=== PATIENT | female | born 1950 | race Caucasian/White ===

== ENCOUNTER 2020-03-24 04:41 | Inpatient (IN) | payer OTHER ==
--- OUTSIDE RECORDS SUMMARY | 2020-03-19 08:08 | XMS ---
:1950 Author [facility] Support Name Relationship Address Phone RE Unavailable Unavailable Unavailable BASHIR GUIDO BROTHER [address] [facility] [place] [address] Re-disclosure Warning The records that you are about to access may contain information from federally- assisted alcohol or drug abuse programs. If such information is present, then the following federally mandated warning applies: This information has been disclosed to you from records protected by federal confidentiality rules (42 CFR part 2). The federal rules prohibit you from making any further disclosure of this information unless further disclosure is expressly permitted by the written consent of the person to whom it pertains or as otherwise permitted by 42 CFR part 2. A general authorization for the release of medical or other information is NOT sufficient for this purpose. The Federal rules restrict any use of the information to criminally investigate or prosecute any alcohol or drug abuse patient.The records that you are about to access may contain highly sensitive health information, the redisclosure of which is protected by Article 27-F of the [facility] Public Health law. If you continue you may haveaccess to information: Regarding HIV / AIDS; Provided by facilities licensed or operated by the [facility] Office of Mental Health; or Provided by the [facility] Office for People With Developmental Disabilities. If such information is present, then the following [facility] mandated warning applies: This information has been disclosed to you from confidential records which are protected by state law. State law prohibits you from making any further disclosure of this information without the specific written consent of the person to whom it pertains, or as otherwise permitted by law. Any unauthorized further disclosure in violation of state law may result in a fine or alf sentence or both. A general authorization for the release of medical or other information is NOT sufficient authorization for further disclosure. Insurance Providers Payer name Policy type Policy ID Covered Covered republican's Policy P candice / Coverage republican ID relationship to [employer] ormation type lord MEDICARE [id number] SP [id number] [employer] [id number] SP [id number] INSURANCE MEDICARE [id number] SP [id number] INS [id number] SP [id number] GLOBE LIFE [id number] SP [id number] Results ID Date Data Source [id number] 03/12/2020 12:21:00 PM EDT [facility] Name Value Range Interpretation Description Data Sup porting Code Source(s) Document(s ) SARS [facility] coronavirus 2 RNA This lab was ordered by [facility] and reported by [facility]. Procedure
[2020-03-23 18:24] VITALS: BMI 18.8
--- OUTSIDE RECORDS SUMMARY | 2020-03-24 04:44 | XMS ---
:1950 Author Organization [facility] Support Name Relationship Address Phone RE Unavailable Unavailable Unavailable BASHIR GUIDO BROTHER [address] [place] [place] [address] Re-disclosure Warning The records that you are [...] is protected by Article 27-F of the [facility] Public Health law. If you continue you may haveaccess to information: Regarding HIV / AIDS; Provided by facilities licensed or operated by the [facility] Office of Mental Health; or Provided by the [facility] Office for People With Developmental Disabilities. If such information is present, then the following [facility] mandated warning applies: This information has [...] law may result in a fine or penitentiary sentence or both. A general authorization for the release of medical or other information is NOT sufficient authorization for further disclosure. Insurance Providers Payer name Policy type Policy ID Covered Covered republican's Policy P candice / Coverage republican ID relationship to [employer] type lord MEDICARE [id number] SP [id number] GLOBE LIFE [id number] SP [id number] INSURANCE MEDICARE [id number] SP [id number] MEDICARE [id number] SP [id number] INS [id number] SP [id number] GLOBE LIFE [id number] SP [id number] Results ID Date Data Source [id number] 03/20/2020 12:20:00 PM EDT [facility] Name Value Range Interpretation Description Data Sup porting Code Source(s) Document(s ) SARS [facility] coronavirus 2 RNA This lab was ordered by [facility] and reported by [facility]. ID Date Data Source [id number] 03/12/2020 12:21:00 PM EDT [facility] Name Value Range Interpretation Description Data Sup porting Code Source(s) Document(s ) SARS [facility] coronavirus 2 RNA This lab was ordered by [facility] and reported by [facility]. Procedure
--- NOTE | 2020-03-24 11:04 | HP ---
Satellite [facility] - Chief Complaint Chief Complaint: left shoulder fx - Past Medical History Allergies/Adverse Reactions: Allergies Allergy/AdvReac Type Severity Reaction Status Date / Time clindamycin Allergy "rash" Verified 03/24/20 09:53 sulfur [From Sulfur-8] Allergy "rash" Verified 03/24/20 09:53 - Current Medications Current Medications: Home Medications Medication Instructions Recorded Duloxetine HCl [Cymbalta] 40 mg PO DAILY 03/15/20 Lisinopril 20 mg PO DAILY 03/15/20 Potassium Chloride [Klor-Con M20] 20 meq PO DAILY 03/24/20 Sodium Chloride 1,000 mg PO BID 03/24/20 Satellite Physical Exam - Physical Examination Vital Signs: Vital Signs Period Temp Pulse Resp BP Sys/Joyce Pulse Ox Last 24 Hr 98.3 F 90 18 165/93 100 General Appearance: Well Nourished, Well Developed, Alert & Oriented x3 ENT: Clear Lung: Normal air movement Extremities: Other (left shoulder- + swelling, + ecchymosis, + ttp, decr rom, nvi) Neurological: Intact, Alert, Oriented Satellite Impression/Plan - Impression/Plan Impression: left displaced 4 part proximal humerus fx Operative Procedure: left reverse TSA Date to be Performed: 03/24/20
[2020-03-24] MEDS ORDERED: ROPIVACAINE HCL 0.5% 30ML VIAL ONE (11:45)
[2020-03-24] MEDS ORDERED: MIDAZOLAM HCL 2 MG/2 ML SINGLE DOSE VIAL ONE ×2 (11:47)
[2020-03-24 12:05] LABS: EPI CELLS 25 /uL (0-25.1); HYALINE CASTS 3 /uL (0-3.1); URINE APPEARANCE CLEAR; URINE BACTERIA 121 /uL (0-1359); URINE BILIRUBIN NEGATIVE (NEGATIVE); URINE COLOR YELLOW; URINE GLUCOSE (UA) NEGATIVE (NEGATIVE); URINE KETONE NEGATIVE (NEGATIVE); URINE LEUK ESTERASE NEGATIVE (NEGATIVE); URINE NITRITE NEGATIVE (NEGATIVE); URINE PROTEIN TRACE (NEGATIVE); URINE UROBILINOGEN 0.2 mg/dL (0.2-1.0); URINE WBC 7 /uL (0-25.8)
[2020-03-24 12:19] LABS: URINE RBC 19.1 /uL (0-23.9)
[2020-03-24] MEDS ORDERED: ROCURONIUM BROMIDE 50 MG/5 ML SYRINGE ONE (12:26)
[2020-03-24] MEDS ORDERED: ceFAZolin SODIUM 1 GM VIAL IVPB ONE (12:30)
[2020-03-24] MEDS ORDERED: DESFLURANE GAS 240 ML BOTTLE IH ONE (12:32)
[2020-03-24] MEDS ORDERED: EPHEDRINE SULFATE/0.9% NACL/PF 50 MG/10 ML SYRINGE NR ONE (12:56)
[2020-03-24] MEDS ORDERED: ONDANSETRON 4 MG/2 ML VIAL IVPUSH PRN (14:20)
[2020-03-24] MEDS ORDERED: LACTATED RINGERS SOLUTION 1,000 ML IV SCH (14:30)
--- NOTE | 2020-03-24 14:38 | OP ---
Operative Note - Note: Operative Date: 03/24/20 ([facility]) Pre-Operative Diagnosis: left displaced 4 part proximal humerus fx Operation: left reverse TSA Post-Operative Diagnosis: Same as Pre-op Surgeon: Juan Daniel Ryan Heliotherapist: [place] Anesthesia: General, Local Specimens Removed: bone fragments Estimated Blood Loss (mls): 250
[2020-03-24] MEDS ORDERED: SODIUM CHLORIDE 1,000 ML IV SCH (14:45)
[2020-03-24] MEDS: CEFAZOLIN 1 GM/D5W 1 GM/50 ML BAG IVPB SCH (18:03)
--- NOTE | 2020-03-24 19:59 | OP ---
DATE OF OPERATION: 03/24/2020 PREOPERATIVE DIAGNOSIS: Four-part proximal humerus fracture. POSTOPERATIVE DIAGNOSIS: Four-part proximal humerus fracture. PROCEDURE: Reverse left shoulder replacement. SURGICAL ATTENDING: Juan Daniel Ryan MD. DISTRIBUTION DESIGNER: GUS Chowdary. ANESTHESIA: Regional and general. CLOSURE: A Emma reverse shoulder replacement system with a 28-mm base plate, a 32 biosphere, a number 9 cemented humeral stem with standard proximal body. Number 1 Vicryl for tendon, and 2-0 Vicryl for fascia and subcutaneous, and 3-0 Monocryl subcuticular with skin glue for skin. ESTIMATED BLOOD LOSS: Approximately 200 mL. COMPLICATIONS: None. CONDITION: To recovery in stable condition. DESCRIPTION OF OPERATIVE PROCEDURE: Patient taken to the operating room on March 24, 2020. Regional and general anesthesia were administered by the anesthesiologist. IV Kefzol was administered prophylactically prior to the case. The patient was placed in the beach chair position with all prominences well padded. Left shoulder was prepped and draped in the usual sterile fashion. The deltopectoral approach to the proximal humerus was performed. The incision was taken from the AC joint curving towards the deltoid insertion. Hemostasis achieved with Bovie cautery with flaps made at medial and laterally. The deltopectoral interval was identified and was developed, retracting the vein laterally. The fracture was found to be markedly comminuted. We developed a plane between the subscapularis and the posterior rotator cuff by finding the biceps tendon and developing that plane between the two. We put traction sutures anteriorly in the subscapularis and posterior in the supraspinatus, infraspinatus and teres minor, all particulate bone in around was debrided. The humeral head was identified and was removed from the wound. Copious amounts of irrigation was used to flush out all the particulate pieces of bone encountered. Anterior posterior glenoid retractors were applied. The 28-mm guidepin was applied in the center and slightly inferior in the glenoid bicortically. This was measured and then screwed with a center screw and a 28-mm baseplate until excellent compression was obtained. 4 screws circumferentially were placed by drilling, depth gauging, and screwing with the appropriate size screw, achieving an excellent rigid construct of the baseplate to the glenoid. The 32-mm Biosphere was then cold welded to the baseplate. Next our attention was directed to the proximal humerus. Intramedullary canal was hand reamed up to an 11-mm reamer. A trial reduction with a 9 stem with 20 degrees of retroversion was performed with a standard head on the humerus. This was done by first screwing the expansion device intramedullary to maintain the appropriate height of the trial above the humerus. We used a measurement of approximately 4 cm of distance between the deltoid insertion to the tip of the component of the landmark. The trial head was applied, and then the shoulder was reduced. Excellent rigidity and range of motion was obtained. We then renewed the trial component. We cleaned and pulse irrigated the intramedullary canal. We placed a cement restrictor distally. We then cemented in the number 9 stem with the same height and retroversion as the trial. We held it in place until the cement got hard and removed all excess cement. The real head and polyethylene was cold welded to the stem, and then the shoulder was reduced. Range of motion and stability were excellent. At this time we tried to repair the tuberosities. We put suture tape sutures in both tuberosities what was remaining of them and sutured them to each other and through the eyelet holes in the fracture stem to try to cinch the tuberosities back to the stem. In addition, we tenodesed the biceps tendon anteriorly as well. The shoulder was pulsed and antibiotic irrigated. The deltopectoral interval was closed with 0 Vicryl running alternating locking sutures. 2-0 Vicryl subcutaneous and 3-0 Monocryl, subcuticular skin glue for the skin. A sterile Aquacel dressing followed by shoulder immobilizer was applied. Patient awakened from anesthesia, transferred to recovery in stable condition. No complications. Estimated blood loss approximately 200 mL. Jody [id number]
[2020-03-24] MEDS: oxyCODONE HCL 5 MG TABLET PO PRN (21:42)
[2020-03-25] MEDS: oxyCODONE HCL 5 MG TABLET PO PRN ×3 (01:40→12:53)
[2020-03-25] MEDS: morphine SULFATE 4 MG/ML VIAL IVPUSH PRN ×2 (03:07→09:08)
[2020-03-25] MEDS: CEFAZOLIN 1 GM/D5W 1 GM/50 ML BAG IVPB SCH (03:09)
[2020-03-25] MEDS ORDERED: PT OWN MED DRAWER 7, Y5N ONE (09:01)
[2020-03-25] MEDS ORDERED: POTASSIUM CHLORIDE TABS 20 MEQ TABLET.ER (FP) PO SCH (10:00)
[2020-03-25] MEDS ORDERED: LISINOPRIL 20 MG TABLET PO SCH (10:00)
[2020-03-25] MEDS ORDERED: DULoxetine HCL 20 MG CAPSULE.DR PO SCH (10:00)
--- NOTE | 2020-03-25 12:41 | PN ---
Progress Note (short form) - Note Progress Note: Ortho Pt seen and examined s/p left reverse TSA pod #1. Selected Entries 03/25/20 06:00 Temperature 98.2 F Respiratory 18 Rate Blood Pressure 178/96 H dressing c/d/i, + swelling distally, +ecchymosis, + ttp, good rom of elbow, wrist and hand nvi a/p repeat BP- elevated due to pain PT, wbat sling for comfort d/c home today f/u in 1 week
--- NOTE | 2020-03-25 12:42 | DS ---
Physical Examination Vital Signs: Vital Signs Temperature 98.2 F 03/25/20 06:00 Pulse Rate 96 H 03/25/20 06:00 Respiratory Rate 18 03/25/20 06:00 Blood Pressure 178/96 H 03/25/20 06:00 O2 Sat by Pulse Oximetry (%) 100 03/25/20 06:00 Discharge Summary Problems reviewed: Yes Reason For Visit: FRACTURE LEFT SHOULDER Procedures: Principal: left reverse TSA Hospital Course: admitted for elective left reverse TSA,post-op per protocol, stable for d/c Condition: Good - Instructions Diet, Activity, Other Instructions: Post -op Instruction Sheet - Shoulder Surgery - Sling/Immobilizer : You have been placed in a sling or shoulder immobilizer. As long as you are wearing this, your shoulder is well protected. You may come out of the sling to dress, or do exercises as directed. You may bend and straighten the elbow, and move your wrist and fingers, but DO NOT use your own muscles to move your elbow away from your side until directed to do so. Please sleep with the sling on. You may find it more comfortable to sleep with a small pillow behind your elbow, or in a recliner. To wash your armpit, you may lean slightly forward and let your arm dangle slightly away from your side and wash with a washcloth. - Use an ice bag/pack on the shoulder for 15 minutes every 2 hours. - Pain medication was sent to your Pharmacy. - Keep your dressing clean and dry. Please call the office to make an appointment for 1 week after surgery. Your dressing will be removed at that time. - No Lifting. - Starting 1-2 days after surgery, you may take your arm out of the sling 3 times a day to bend and straighten your elbow and wrist to prevent stiffness. If only an arthroscopy was performed and NO repairs, you may move your shoulder as tolerated. If a rotator cuff/labral repair was performed, DO NOT move your shoulder until instructed by surgeon. - Please call the office at [phone] if there are any questions or concerns. Referrals: Juan Daniel Ryan MD [Staff Physician] - Disposition: HOME - Home Medications Comprehensive Discharge Medication List: Ambulatory Orders Duloxetine HCl [Cymbalta] 40 mg PO DAILY 03/15/20 Lisinopril 20 mg PO DAILY 03/15/20 Oxycodone HCl/Acetaminophen [Percocet 5-325 mg Tablet] 1 - 2 tab PO Q6H #30 tab MDD 6 03/24/20 Potassium Chloride [Klor-Con M20] 20 meq PO DAILY 03/24/20 Sodium Chloride 1,000 mg PO BID 03/24/20
[2020-03-25 14:30] VITALS: BP 163/96; PULSE 91; TEMP 98.5
== END 2020-03-25 14:59 | disposition home or self-care (01) | DRG 483 ==
LOC: J2C 04:41 → EDSTATUS 11:00 → J6S 16:33
PROVIDERS: ADMIT Orthopaedic Surgery; ATTEND Orthopaedic Surgery
PROC: 0RRK00Z Replacement of Left Shoulder Joint with Reverse Ball and Socket Synthetic Substitute, Open Approach (ICD-10-PCS; principal; 2020-03-24 11:45)
DX: S42.202A Unspecified fracture of upper end of left humerus, initial encounter for closed fracture (principal); J44.9 Chronic obstructive pulmonary disease, unspecified; I10 Essential (primary) hypertension; T14.8XXA Other injury of unspecified body region, initial encounter; X58.XXXA Exposure to other specified factors, initial encounter; Y93.89 Activity, other specified; Y92.9 Unspecified place or not applicable; Y99.9 Unspecified external cause status
CPT/HCPCS: 36415; 73030-TC-LT-FY; 80053; 80061; 81003; 85025; 94760; 97116-GP; 97162-GP

== ENCOUNTER 2021-09-22 06:35 | Day surgery (SDC) | payer OTHER ==
[2021-09-19 14:10] VITALS: BMI 19.8
[2021-09-22] MEDS: TROPICAMIDE 1% OPHTH SOLN 15 ML BOTTLE ONE ×3 (07:10→07:20)
[2021-09-22] MEDS: PHENYLEPHRINE 2.5% OPHTH SOLN 15 ML BOTTLE ONE ×3 (07:10→07:20)
[2021-09-22] MEDS: CIPROFLOXACIN 0.3% EYE DROPS 5 ML BOTTLE ONE ×3 (07:10→07:20)
[2021-09-22] MEDS: CYCLOPENTOLATE 2% OPHTH SOLN 2 ML BOTTLE ONE ×3 (07:10→07:20)
[2021-09-22] MEDS ORDERED: PHENYLEPHRINE/KETOROLAC 4 ML VIAL IO ONE (07:12)
[2021-09-22] MEDS ORDERED: TRYPAN BLUE 0.5 ML DISP.SYRIN ONE (07:12)
[2021-09-22] MEDS ORDERED: LIDOCAINE 1% P/F 10 MG/ML VIAL ONE (07:12)
[2021-09-22] MEDS ORDERED: NEO/POLYMYX B SULF/DEXAMETH OPHTHALMIC 5ML BOTTLE ONE (07:13)
[2021-09-22] MEDS ORDERED: ACETYLCHOLINE 1:100 INTRA-OCUL 20 MG/2 ML KIT ONE (07:13)
[2021-09-22] MEDS ORDERED: CARBACHOL 0.01% INTRA-OCULAR 1.5 ML VIAL ONE (07:13)
[2021-09-22] MEDS ORDERED: TETRACAINE 0.5% OPHTH SOLN 2 ML BOTTLE ONE (07:13)
[2021-09-22] MEDS ORDERED: BSS (NA/CA/MG/K) BALANCED SALT SOLUTION OPHTH SOLN 15 ML BOTTLE ONE (07:13)
[2021-09-22] MEDS ORDERED: EPINEPHrine/PF 1 MG/1 ML (1:1,000) AMPULE ONE (07:14)
[2021-09-22] MEDS ORDERED: MIDAZOLAM HCL 2 MG/2 ML SINGLE DOSE VIAL ONE ×2 (07:58→08:07)
[2021-09-22 09:02] VITALS: TEMP 97.5
[2021-09-22 09:05] VITALS: BP 111/62; PULSE 74
== END 2021-09-22 09:30 | disposition home or self-care (01) ==
LOC: FASU 06:35
PROVIDERS: ATTEND Ophthalmology
PROC: 08RK3JZ Replacement of Left Lens with Synthetic Substitute, Percutaneous Approach (ICD-10-PCS; principal; 2021-09-22 08:11)
DX: H26.8 Other specified cataract (principal)
CPT/HCPCS: 66984; V2632; J1097

== ENCOUNTER 2021-10-12 09:34 | Day surgery (SDC) | payer OTHER ==
[2021-10-05 15:21] VITALS: BMI 19.8
[2021-10-12] MEDS: CYCLOPENTOLATE 2% OPHTH SOLN 2 ML BOTTLE ONE ×3 (10:00→10:10)
[2021-10-12] MEDS: PHENYLEPHRINE 2.5% OPHTH SOLN 15 ML BOTTLE ONE ×3 (10:00→10:10)
[2021-10-12] MEDS: TROPICAMIDE 1% OPHTH SOLN 15 ML BOTTLE ONE ×3 (10:00→10:10)
[2021-10-12] MEDS: CIPROFLOXACIN 0.3% EYE DROPS 5 ML BOTTLE ONE ×3 (10:00→10:10)
[2021-10-12] MEDS ORDERED: MIDAZOLAM HCL 2 MG/2 ML SINGLE DOSE VIAL ONE (10:04)
[2021-10-12 12:14] VITALS: TEMP 98.4
[2021-10-12 12:28] VITALS: BP 107/69; PULSE 89
[2021-10-12] MEDS ORDERED: TETRACAINE 0.5% OPHTH SOLN 2 ML BOTTLE ONE (12:51)
[2021-10-12] MEDS ORDERED: CARBACHOL 0.01% INTRA-OCULAR 1.5 ML VIAL ONE (12:51)
[2021-10-12] MEDS ORDERED: NEO/POLYMYX B SULF/DEXAMETH OPHTHALMIC 5ML BOTTLE ONE (12:51)
[2021-10-12] MEDS ORDERED: LIDOCAINE 1% P/F 10 MG/ML VIAL ONE (12:51)
== END 2021-10-12 12:30 | disposition home or self-care (01) ==
LOC: FASU 09:34
PROVIDERS: ATTEND Ophthalmology
PROC: 08RJ3JZ Replacement of Right Lens with Synthetic Substitute, Percutaneous Approach (ICD-10-PCS; principal; 2021-10-12 11:20)
DX: H26.8 Other specified cataract (principal)
CPT/HCPCS: 66984; V2632